=== PATIENT | female | born 1995 | race Two or more races ===

== ENCOUNTER 2023-02-10 07:05 | Emergency (ER) | payer BC ==
[~2023-02-10] VITALS: Ht 157.5 cm; Wt 51.7 kg
[2023-02-10] MEDS ORDERED: IV NS 0.9% 1,000 ML BAG IV ONE (07:30)
--- NOTE | 2023-02-10 07:45 | NUR ---
URINE SAMPLE COLLECTED AND SENT TO LAB
[2023-02-10 07:48] LABS: BASOPHILS # (AUTO) 0.1 K/uL (0.0-0.2); BASOPHILS % (AUTO) 1.4 % (0.0-2.0); EOSINOPHILS % (AUTO) 2.2 % (0.0-6.0); HEMATOCRIT 31 % (33-45); HEMOGLOBIN 10.3 g/dL (11.5-14.8); LYMPHOCYTES # (AUTO) 2.7 K/uL (0.8-4.8); LYMPHOCYTES % (AUTO) 67.2 % (20.0-44.0); MEAN CORPUSCULAR HGB CONC 33 g/dl (31.0-36.0); MEAN CORPUSCULAR VOLUME 92 fL (82-100); MONOCYTES # (AUTO) 0.3 K/uL (0.1-1.30); MONOCYTES % (AUTO) 6.8 % (2.0-12.0); NEUTROPHILS # (AUTO) 0.9 K/uL (1.8-8.9); NEUTROPHILS % (AUTO) 22.4 % (43.0-81.0); PLATELET COUNT (AUTO) 310 K/uL (150-450); RED BLOOD CELL COUNT(AUTO) 3.39 MIL/uL (4.0-5.2)
--- NOTE | 2023-02-10 07:49 | NUR ---
20 G R AC IV placed. Line flushed, pt tolerated well
[2023-02-10 07:56] LABS: BILIRUBIN,URINE NEGATIVE (NEGATIVE); COLOR,URINE YELLOW (YELLOW); LEUKOCYTE ESTERASE ,URINE NEGATIVE (NEGATIVE); NITRITE, URINE NEGATIVE (NEGATIVE); PROTEIN,URINE NEGATIVE (NEGATIVE); UGLUCOSE NEGATIVE (NEGATIVE); UROBILINOGEN,URINE 0.2 EU/dL (0.2)
[2023-02-10] MEDS ORDERED: ONDANSETRON HCL/PF 4 MG/2 ML VIAL ONE (07:59)
[2023-02-10] MEDS ORDERED: MORPHINE SULFATE INJ 4 MG/ML DISP.SYRIN ONE (07:59)
[2023-02-10] MEDS ORDERED: ONDANSETRON HCL/PF 4 MG/2 ML VIAL IV ONE (08:00)
[2023-02-10] MEDS ORDERED: MORPHINE SULFATE INJ 2 MG/ML DISP.SYRIN IV ONE (08:00)
[2023-02-10 08:04] LABS: BACTERIA,URINE Rare /HPF (None Seen); RBC,URINE 0-2 /HPF (0-2); SQUAMOUS EPITHELIAL CELL,UR Moderate /HPF (None Seen); WBC,URINE 0-2 /HPF (0-3)
[2023-02-10 08:08] LABS: ALBUMIN 3.5 g/dL (3.4-5.0); BILIRUBIN,DIRECT 0.1 mg/dL (0.0-0.2); BILIRUBIN,TOTAL 0.2 mg/dL (0.2-1.0); CALCIUM, SERUM 8.7 mg/dL (8.5-10.1); CREATININE 0.6 mg/dL (0.6-1.3); POTASSIUM 3.7 mmol/L (3.5-5.1); TOTAL PROTEIN, SERUM 6.7 g/dL (6.4-8.2)
--- NOTE | 2023-02-10 08:11 | NUR ---
Per ordering physician okay to administer medication prior to lab work being resulted. See MAR for details
--- NOTE | 2023-02-10 08:15 | NUR ---
[facility] [phone] X [phone]
[2023-02-10] MEDS ORDERED: HYDR-4209 PO (09:49)
[2023-02-10] MEDS ORDERED: POLY119P PO (09:49)
[2023-02-10] MEDS ORDERED: HYDROCODONE/APAP 5/325MG TABLET ONE (09:57)
[2023-02-10] MEDS ORDERED: HYDROCODONE/APAP 5/325MG TABLET PO ONE (10:00)
--- NOTE | 2023-02-10 10:20 | NUR ---
COVID swab obtained and sent to lab
--- NOTE | 2023-02-10 10:22 | NUR ---
DR. CALLES SPEAKING WITH DR. BLOUNT.
--- NOTE | 2023-02-10 10:38 | NUR ---
[facility] [phone] ANGIE
[2023-02-10 11:22] VITALS: BP 101/58
--- NOTE | 2023-02-10 11:23 | NUR ---
Pt provided with discharge instructions, pt verbalized udnerstanding. Pt states "I am going to [facility] as soon as I leave". Pt ambulated with a steady gait.
== END 2023-02-10 11:26 | disposition home or self-care (01) ==
LOC: ER 07:07
DX: O03.4 Incomplete spontaneous abortion without complication (principal); O26.899 Other specified pregnancy related conditions, unspecified trimester; K59.00 Constipation, unspecified; R10.9 Unspecified abdominal pain; Z3A.00 Weeks of gestation of pregnancy not specified; Z20.822 Contact with and (suspected) exposure to COVID-19
CPT/HCPCS: 99285; 96374; 76856; 96361; 96375; 87426; 85025; 80048; 83690; 80076; 84703; 81001; 36415; 84702; J2270; J2405; J7030; A4223; C9803

== ENCOUNTER 2024-12-09 19:17 | Emergency (ER) | payer BC ==
[~2024-12-09] VITALS: Ht 160 cm; Wt 54.4 kg
[~2024-12-09 19:17] MED LIST: HYDR-4209 PO; POLY119P PO
[2024-12-09 20:50] VITALS: BP 111/79; TEMP 98.2; O2SAT 98
[2024-12-09 21:12] LABS: BASOPHILS % (AUTO) 0.9 % (0.0-2.0); EOSINOPHILS % (AUTO) 0.8 % (0.0-6.0); HEMATOCRIT 35 % (33-45); HEMOGLOBIN 11.8 g/dL (11.5-14.8); LYMPHOCYTES # (AUTO) 1.1 K/uL (0.8-4.8); LYMPHOCYTES % (AUTO) 45.3 % (20.0-44.0); MEAN CORPUSCULAR HEMOGLOBIN 31 PG (26.0-33.0); MEAN CORPUSCULAR HGB CONC 34 g/dl (31.0-36.0); MEAN CORPUSCULAR VOLUME 91 fL (82-100); MONOCYTES # (AUTO) 0.2 K/uL (0.1-1.30); MONOCYTES % (AUTO) 7.7 % (2.0-12.0); NEUTROPHILS # (AUTO) 1.1 K/uL (1.8-8.9); NEUTROPHILS % (AUTO) 45.3 % (43.0-81.0); PLATELET COUNT (AUTO) 193 K/uL (150-450); RED BLOOD CELL COUNT(AUTO) 3.85 MIL/uL (4.0-5.2); RED CELL DISTRIBUTION WIDTH 13.1 % (11.5-15.0); WHITE BLOOD COUNT (AUTO) 2.4 K/uL (4.3-11.0)
[2024-12-09 21:19] LABS: CALCIUM, SERUM 8.7 mg/dL (8.5-10.1); CREATININE 0.5 mg/dL (0.6-1.3); POTASSIUM 3.6 mmol/L (3.5-5.1)
[2024-12-09 21:26] LABS: ALBUMIN 3.7 g/dL (3.4-5.0); BILIRUBIN,DIRECT 0.1 mg/dL (0.0-0.2); BILIRUBIN,TOTAL 0.2 mg/dL (0.2-1.0)
[2024-12-09] MEDS ORDERED: KETOROLAC TROMETHAMINE 15 MG/ML VIAL ONE (21:43)
[2024-12-09] MEDS: KETOROLAC TROMETHAMINE 15 MG/ML VIAL IM ONE (21:50)
[2024-12-09] MEDS ORDERED: ONDANSETRON 4 MG TAB.RAPDIS ONE (21:54)
[2024-12-09] MEDS: ONDANSETRON 4 MG TAB.RAPDIS SL ONE (21:55)
[2024-12-09 23:22] LABS: BASOPHILS % (MANUAL) 0 % (0.0-2.0); EOSINOPHILS % (MANUAL) 0 % (0-4); LYMPHOCYTES % (MANUAL) 42 % (16-48); MONOCYTES % (MANUAL) 9 % (0-11.0); NEUTROPHILS % (MANUAL) 49 (42-76)
[2024-12-09 23:23] LABS: PLATELET ESTIMATE ADEQUATE
== END 2024-12-09 22:08 | disposition left against medical advice (07) ==
LOC: ER 19:21
DX: R10.13 Epigastric pain (principal); R11.0 Nausea; R53.1 Weakness; J45.909 Unspecified asthma, uncomplicated
CPT/HCPCS: 99283; 96372; 85025; 80048; 83690; 80076; 36415; 84702; 85007; J1885; Q0162